=== PATIENT | female | born 1975 | race Hispanic/Latino ===

== ENCOUNTER → 2024-10-16 | Day surgery (SDC) | payer BC ==
[~2024-10-16] MED LIST: ACETAMINOPHEN 1000 MG/100 ML 100 ML IV ONE; DEXAMETHASONE SOD PHOS INJ 4 MG/ML SDV ONE; FAMOTIDINE 20 MG/2 ML VIAL IV ONE; FENTANYL CITRATE/PF 100MCG/2 ML INJ ONE; LIDOCAINE HCL 2% LOCAL INJ 5 ML SDV VIAL INJ ONE; METOCLOPRAMIDE HCL 10 MG/2ML VIAL ONE; MIDAZOLAM HCL 2 MG/2 ML VIAL ONE; NAPROSYN500 MG PO; ONDANSETRON HCL INJ 2MG/ML 2ML 2 MG/ML VIAL ONE; PROPOFOL IV EMULSION 10 MG/ML 20 ML VIAL ONE; SEVOFLURANE INHAL SOLN 250 ML PEN BTL ONE
[2024-10-16] MEDS: LACTATED RINGER'S 1,000 ML ONE (09:52)
[2024-10-16 12:30] VITALS: TEMP 97
[2024-10-16] MEDS: FENTANYL CITRATE/PF 100MCG/2 ML INJ ONE (12:58)
[2024-10-16 13:50] VITALS: BP 113/80; PULSE 63; RESP 18; O2SAT 100
== END | disposition home or self-care (01) ==
LOC: OR 08:47
PROVIDERS: ATTEND Specialist
DX: M94.262 Chondromalacia, left knee (principal); M17.12 Unilateral primary osteoarthritis, left knee; Z01.810 Encounter for preprocedural cardiovascular examination; Z01.818 Encounter for other preprocedural examination; Z88.5 Allergy status to narcotic agent; Z79.1 Long term (current) use of non-steroidal anti-inflammatories (NSAID); Z79.899 Other long term (current) drug therapy
CPT/HCPCS: 29877; 81025; 93005; J0131; J0690; J1100; J1308; J2003; J2250; J2405; J2704; J2765; J3010; J7121